=== PATIENT | female | born 1945 | race Caucasian/White ===

== ENCOUNTER → 2016-07-13 | Outpatient (CLI) | payer BC ==
[~2016-07-13] MED LIST: CLB/200 PO; CRAN500C2; DIPH25CA37 PO; FERR1TAB23 PO; GLUCTAB7 PO; HYDR12.55 PO; MULTTAB PO
--- NOTE | 2016-07-13 12:47 | MAMMOGRAPHY REPORT ---
BILATERAL DIGITAL SCREENING MAMMOGRAM TOMOSYNTHESIS WITH CAD: 07/13/2016 CLINICAL HISTORY: Routine screening. Patient has no complaints. TECHNIQUE: Breast tomosynthesis in addition to standard 2D mammography was performed. Current study was also evaluated with a Computer Aided Detection (CAD) system. COMPARISON: Comparison is made to exams dated: 07/09/2015 mammogram, 07/08/2014 mammogram, 07/04/2013 keon mogram, 01/14/2013 mammogram, 07/11/2012 mammogram, and 07/02/2012 mammogram - [facility] nt. BREAST COMPOSITION: There are scattered areas of fibroglandular density in both breasts. FINDINGS: No suspicious masses, calcifications, or areas of architectural distortion are noted in e ither breast. There has been no significant interval change compared to prior exams. Small nodular asymmetry in the right subareolar breast on the cc view is stable dating back to at least the 2009 e xam. Bilateral benign-appearing calcifications are not significantly changed. IMPRESSION: ACR BI-RADS CATEGORY 2: BENIGN There is no mammographic evidence of malignancy. A 1 year screening mammogram is recommended. The p atient will receive written notification of the results. Approximately 10% of breast cancers are not detected with mammography. A negative mammographic repor t should not delay biopsy if a clinically suggestive mass is present. Malika Mendoza M.D. ah/:07/13/2016 07:47:05 Deli Associate: Dori AUGUST)(Terry), [facility] letter sent: Normal 1/2 BI-RADS Code: ACR BI-RADS Category 2: Benign
== END | disposition home or self-care (01) ==
LOC: C.MAMM 07:10
PROVIDERS: ATTEND Family Medicine
DX: Z12.31 Encounter for screening mammogram for malignant neoplasm of breast (principal)

== ENCOUNTER → 2017-01-26 | Outpatient (CLI) | payer BC | END | disposition home or self-care (01) | LOC: C.MAMM 09:52 | PROVIDERS: ATTEND Family Medicine | DX: M85.851 Other specified disorders of bone density and structure, right thigh (principal); M85.852 Other specified disorders of bone density and structure, left thigh ==

== ENCOUNTER 2017-06-09 11:32 | Emergency (ER) | payer BC ==
[~2017-06-09] VITALS: Ht 165.1 cm; Wt 63.6 kg
[2017-06-09 11:41] VITALS: O2SAT 95
[2017-06-09 11:46] VITALS: TEMP 36.4; Ht 165.1 cm; Wt 63.6 kg
--- NOTE | 2017-06-09 12:25 | EMERGENCY ROOM VISIT NOTE ---
History Report prepared by Grecia: Karly Ibarra Under the Supervision of: Dr. Olman Gil M.D. First contact with patient: 11:50 Chief Complaint: SYNCOPE Stated Complaint: SYNCOPE Nursing Triage Summary: Patient was volunteering at [employer] when she began to feel light headed and dizzy. Patient sat down in chair and then had a witnessed syncopal episode. + LOC. Bystanders were able to lower patient to floor. Did not hit head. No injuries noted. Denies pain. Feels somewhat light headed at this time when sitting up. Had similar episode about 4 years ago. BS History of Present Illness The patient is a 71 year old female who presents to the Emergency Room with complaints of episode of syncope occurring at 10:30 am this morning. The patient states she was making meals for [employer] when she started to feel dizzy and lightheaded. She reports she then went to sit down and ate a banana and drank some water. She reports her symptoms worsened and then she had the episode of syncope. The patient states she did not hit her head and states 1 of her friends caught her and she did not hit the ground.. She denies any chest pain or shortness of breath. Presently, the patient notes some lightheadedness. She is not on a blood thinner. The patient has a history of arthritis. The patient she used to have hypertension but she recently lost weight which caused her blood pressure to normalize. Source of History: patient Onset: 1030 Position: other (generalized) Quality: other (syncope) Timing: other (episode) Associated Symptoms: + LOC, No headache, No chest pain, No SOB Review of Systems See HPI for pertinent positives and negatives. A total of ten systems were reviewed and were otherwise negative. Past Medical & Surgical Medical Problems: (1) Arthritis Family History No significant family history Social History Smoking Status: Never Smoker Marital Status: Housing Status: lives with significant other Occupation Status: retired Current/Historical Medications Scheduled Ascorbic Acid (Vitamin C), 500 MG PO DAILY Celecoxib (CeleBREX), 200 MG PO DAILY Celecoxib (Celebrex), 100 MG PO HS Cranberry (Vaccinium Macrocarp (Cranberry), 2 TABS DAILY Melatonin (Melatonin), 10 MG PO HS Multivitamins/Minerals (Mvi With Minerals), 1 TAB PO DAILY Allergies Coded Allergies: No Known Allergies (Unverified , 3/9/18) Physical Exam Vital Signs Date Time Temp Pulse Resp B/P (MAP) Pulse Ox O2 Delivery O2 Flow Rate FiO2 06/09/17 14:31 71 112/68 97 06/09/17 12:58 69 144/76 98 Room Air 06/09/17 12:08 73 06/09/17 11:46 36.4 74 127/70 97 Room Air 06/09/17 11:42 76 115/72 80 132/83 89 127/70 06/09/17 11:41 95 Room Air Physical Exam Physical Exam GENERAL: She is oriented to person, place, and time. She appears well- developed and well-nourished. She does not appear distressed. ____ HENT: Exam performed. Head: Normocephalic and atraumatic. Right Ear: External ear normal. No mastoid tenderness. Left Ear: External ear normal. No mastoid tenderness. Mouth/Throat: The oropharynx is clear and moist. No trismus in the jaw. No dental abscesses or uvula swelling. No oropharyngeal exudate or tonsillar abscesses. ____ EYES: Conjunctivae and EOM are normal. Pupils are equal, round, and reactive to light. Right eye exhibits no discharge. Left eye exhibits no discharge. No scleral icterus. ____ NECK: Normal range of motion. Neck supple. No JVD present. No spinous process tenderness present. No carotid bruit present. No rigidity. No tracheal deviation and normal range of motion present. No Brudzinski's sign and no Kernig 's sign noted. ____ CV: Normal rate, regular rhythm, normal heart sounds and intact distal pulses. There is no peripheral edema. Palpable radial pulses bue. ____ PULM/CHEST: Effort normal and breath sounds normal. No respiratory distress. No stridor. She has no wheezes. She has no rales. Chest Wall: She exhibits no tenderness. ____ ABD: The abdomen is soft. Bowel sounds are normal. She has no distension. No mass is present. There is no tenderness. There is no rebound, no guarding, no Morris's sign and no tenderness at McBurney's point. Rovsig negative MUSC/SKEL: Normal range of motion. There is no peripheral edema, tenderness or deformity. LYMPH: No cervical adenopathy. ____ NEURO: She is alert and oriented to person, place, and time. She has normal strength. No cranial nerve deficit or sensory deficit. Coordination and gait normal. GCS eye subscore is 4. GCS verbal subscore is 5. GCS motor subscore is 6. Cerebellar tests wnl. ____ SKIN: Skin is warm and dry. She is not diaphoretic. ____ PSYCH: She has a normal mood and affect. Her behavior is normal. Judgment and thought content normal. ____ Medical Decision & Procedures ER Provider Diagnostic Interpretation: Radiology results as stated below per my review and radiologist interpretation: ULTRASOUND OF THE ABDOMINAL AORTA FINDINGS: There is mild atherosclerotic calcification and irregularity noted throughout the abdominal aorta. The proximal abdominal aorta measures 2.1 x 2.2 cm (AP times transverse), the mid abdominal aorta measures 2.3 x 2.7 cm, and the distal abdominal aorta measures 1.9 x 2.1 cm. The right common iliac artery measures up to 1.1 cm and the left common iliac artery measures up to 1.2 cm. Normal flow and spectral Doppler waveforms are seen within the abdominal aorta. IMPRESSION: There is no sonographic evidence of abdominal aortic aneurysm. Electronically signed by: Sal Barnes M.D. Laboratory Results 06/09/17 12:25 Red Blood Count 4.28, Mean Corpuscular Volume 85.7, Mean Corpuscular Hemoglobin 29.0, Mean Corpuscular Hemoglobin Concent 33.8, Mean Platelet Volume 10.4, Neutrophils (%) (Auto) 75.5, Lymphocytes (%) (Auto) 16.8, Monocytes (%) (Auto) 4.7, Eosinophils (%) (Auto) 2.5, Basophils (%) (Auto) 0.3, Neutrophils # (Auto) 4.62, Lymphocytes # (Auto) 1.03, Monocytes # (Auto) 0.29, Eosinophils # (Auto) 0.15, Basophils # (Auto) 0.02 06/09/17 12:25 Test 06/09/17 12:25 White Blood Count 6.12 K/uL (4.8-10.8) Red Blood Count 4.28 M/uL (4.2-5.4) Hemoglobin 12.4 g/dL (12.0-16.0) Hematocrit 36.7 % (37-47) Mean Corpuscular Volume 85.7 fL (80-100) Mean Corpuscular Hemoglobin 29.0 pg (25-34) Mean Corpuscular Hemoglobin Concent 33.8 g/dl (32-36) Platelet Count 236 K/uL (130-400) Mean Platelet Volume 10.4 fL (7.4-10.4) Neutrophils (%) (Auto) 75.5 % Lymphocytes (%) (Auto) 16.8 % Monocytes (%) (Auto) 4.7 % Eosinophils (%) (Auto) 2.5 % Basophils (%) (Auto) 0.3 % Neutrophils # (Auto) 4.62 K/uL (1.4-6.5) Lymphocytes # (Auto) 1.03 K/uL (1.2-3.4) Monocytes # (Auto) 0.29 K/uL (0.11-0.59) Eosinophils # (Auto) 0.15 K/uL (0-0.5) Basophils # (Auto) 0.02 K/uL (0-0.2) RDW Standard Deviation 44.6 fL (36.4-46.3) RDW Coefficient of Variation 14.2 % (11.5-14.5) Immature Granulocyte % (Auto) 0.2 % Immature Granulocyte # (Auto) 0.01 K/uL (0.00-0.02) Anion Gap 6.0 mmol/L (3-11) Est Creatinine Clear Calc Drug Dose 61.8 ml/min Estimated GFR () 93.8 Estimated GFR (Non- 80.9 BUN/Creatinine Ratio 42.1 (10-20) Calcium Level 9.2 mg/dl (8.5-10.1) Troponin I < 0.015 ng/ml (0-0.045) Laboratory results reviewed by me ECG Per My Interpretation Indication: syncope Rate (beats per minute): 69 Rhythm: sinus rhythm Findings: other (MN, QRS, QTC within normal limits, no ST elevation or ST depression ) ED Course 1156: The patient was evaluated in room A12B. A complete history and physical exam was performed. 1430: Vitals stable. The patient feels fine and denies any chest pain or shortness of breath. Labs, EKG and imaging within normal limits. The patient is comfortable going home. DISCHARGE - Plan of care discussed with family and questions answered. The family was given both verbal and printed discharge instructions. The family verbalized understanding and ability to comply. The family is to seek outpatient follow up as noted in the discharge instructions. The family verbalized understanding and ability to comply. The family is discharged in stable condition. The family was instructed to return for worsening symptoms. Medical Decision Vitals stable. The patient feels fine and denies any chest pain or shortness of breath. Labs, EKG and imaging within normal limits. The patient is comfortable going home. DISCHARGE - Plan of care discussed with family and questions answered. The family was given both verbal and printed discharge instructions. The family verbalized understanding and ability to comply. The family is to seek outpatient follow up as noted in the discharge instructions. The family verbalized understanding and ability to comply. The family is discharged in stable condition. The family was instructed to return for worsening symptoms. Medication Reconcilliation Current Medication List: was personally reviewed by me Blood Pressure Screening Patient's blood pressure: Normal blood pressure Impression Primary Impression: Syncope Scribe Attestation The scribe's documentation has been prepared under my direction and personally reviewed by me in its entirety. I confirm that the note above accurately reflects all work, treatment, procedures, and medical decision making performed by me. The chart was completed utilizing [employer] Speech voice recognition software. Grammatical errors, random word insertions, pronoun errors, and incomplete sentences are an occasional consequence of this system due to software limitations, ambient noise, and hardware issues. Any formal questions or concerns about the content, text, or information contained within the body of this dictation should be directly addressed to the physician for clarification. Departure Information Dispostion Home / Self-Care Referrals Tariq Fontenot M.D. (PCP) Forms HOME CARE DOCUMENTATION FORM, IMPORTANT VISIT INFORMATION Patient Instructions ED Near [facility], [facility] Additional Instructions Return to the emergency department if you develop chest pain, shortness of breath, cough up blood, lose consciousness, have seizure, or fever greater than 100.4 Problem Qualifiers Primary Impression: Syncope Syncope type: unspecified Qualified Codes: R55 - Syncope and collapse
[2017-06-09 12:33] LABS: BASO % 0.3 %; BASO ABS # 0.02 K/uL (0-0.2); EOS % 2.5 %; EOS ABS # 0.15 K/uL (0-0.5); HEMATOCRIT 36.7 % (37-47); HEMOGLOBIN 12.4 g/dL (12.0-16.0); IG# 0.01 K/uL (0.00-0.02); LYMPH % 16.8 %; LYMPH ABS # 1.03 K/uL (1.2-3.4); MEAN CELL VOLUME 85.7 fL (80-100); MEAN CORPUSCULAR HGB CONC 33.8 g/dl (32-36); MEAN PLATELET VOLUME 10.4 fL (7.4-10.4); MONO % 4.7 %; MONO ABS # 0.29 K/uL (0.11-0.59); NEUT % 75.5 %; NEUT ABS # 4.62 K/uL (1.4-6.5); PLATELET COUNT 236 K/uL (130-400); RED CELL DISTRIBUTION WIDTH CV 14.2 % (11.5-14.5); RED CELL DISTRIBUTION WIDTH SD 44.6 fL (36.4-46.3); WHITE BLOOD COUNT 6.12 K/uL (4.8-10.8)
[2017-06-09 12:50] LABS: BLOOD UREA NITROGEN 31 mg/dl (7-18); CALCIUM 9.2 mg/dl (8.5-10.1); CARBON DIOXIDE 27 mmol/L (21-32); CREATININE 0.74 mg/dl (0.60-1.20); GLUCOSE 160 mg/dl (70-99); POTASSIUM 4.2 mmol/L (3.5-5.1); SODIUM 136 mmol/L (136-145)
--- NOTE | 2017-06-09 13:06 | DIAGNOSTIC IMAGING REPORT ---
ULTRASOUND OF THE ABDOMINAL AORTA CLINICAL HISTORY: Syncope. Aneurysm Screening. COMPARISON STUDY: No priors. TECHNIQUE: Multiple gaston scale, color Doppler, and spectral Doppler sonograms of the abdominal aorta and iliac arteries are performed. Images are reviewed in the transverse and longitudinal planes. FINDINGS: There is mild atherosclerotic calcification and irregularity noted throughout the abdominal aorta. The proximal abdominal aorta measures 2.1 x 2.2 cm (AP times transverse), the mid abdominal aorta measures 2.3 x 2.7 cm, and the distal abdominal aorta measures 1.9 x 2.1 cm. The right common iliac artery measures up to 1.1 cm and the left common iliac artery measures up to 1.2 cm. Normal flow and spectral Doppler waveforms are seen within the abdominal aorta. IMPRESSION: There is no sonographic evidence of abdominal aortic aneurysm. Electronically signed by: Sal Barnes M.D. 06/09/2017 1:04 PM Dictated Date/Time: 06/09/2017 12:58 PM
[2017-06-09] MEDS ORDERED: CELE100C PO (13:13)
[2017-06-09] MEDS ORDERED: ASCA500 PO (13:13)
[2017-06-09] MEDS ORDERED: MELA5TAB18 PO (13:13)
[2017-06-09 14:31] VITALS: BP 112/68; PULSE 71; O2SAT 97
== END 2017-06-09 14:31 | disposition home or self-care (01) ==
LOC: EDBD 11:32 → C.EDA 11:33
DX: R55 Syncope and collapse (principal); M19.90 Unspecified osteoarthritis, unspecified site; Z79.899 Other long term (current) drug therapy

== ENCOUNTER → 2017-06-14 | Outpatient (CLI) | payer BC ==
[~2017-06-14] MED LIST changes: +ASCA500 PO; +CELE100C PO; -DIPH25CA37 PO; -FERR1TAB23 PO; -GLUCTAB7 PO; -HYDR12.55 PO; +MELA5TAB18 PO
--- NOTE | 2017-06-14 09:42 | DIAGNOSTIC IMAGING REPORT ---
L HIP UNILATERAL 2 VIEWS CLINICAL HISTORY: PAIN IN L HIP pain COMPARISON: None. DISCUSSION: Severe degenerative change left hip. No complete loss of joint space. Reactive sclerosis of the articular services of the acetabulum as well as femoral head. Degenerative subchondral cyst formation of the femoral head and to a lesser extent acetabulum. Peripheral osteophytic change of the femoral head. No evidence for fracture or acetabular protrusion. Moderate degenerative changes left sacroiliac joint. There is no evidence for soft tissue swelling. IMPRESSION: Severe degenerative change left hip. The above report was generated using voice recognition software. It may contain grammatical, syntax or spelling errors. Electronically signed by: Sg Pedraza M.D. 06/14/2017 9:40 AM Dictated Date/Time: 06/14/2017 9:39 AM
== END | disposition home or self-care (01) ==
LOC: C.RAD1850 09:31
PROVIDERS: ATTEND Family Medicine
DX: M16.12 Unilateral primary osteoarthritis, left hip (principal); M25.552 Pain in left hip

== ENCOUNTER → 2017-07-10 | Outpatient (CLI) | payer BC | END | disposition home or self-care (01) | LOC: C.RDSM 17:46 | PROVIDERS: ATTEND Physical Medicine & Rehabilitation Sports Medicine | DX: M25.552 Pain in left hip (principal) ==

== ENCOUNTER → 2017-07-18 | Outpatient (CLI) | payer BC ==
--- NOTE | 2017-07-19 07:50 | MAMMOGRAPHY REPORT ---
BILATERAL DIGITAL SCREENING MAMMOGRAM TOMOSYNTHESIS WITH CAD: 07/18/2017 CLINICAL HISTORY: Routine screening. TECHNIQUE: Breast tomosynthesis in addition to standard 2D mammography was performed. Current study was also evaluated with a Computer Aided Detection (CAD) system. COMPARISON: Comparison is made to exams dated: 07/13/2016 mammogram, 07/09/2015 mammogram, 07/08/2014 keon mogram, 07/04/2013 mammogram, 07/02/2012 mammogram, and 06/27/2011 mammogram - [facility] BREAST COMPOSITION: There are scattered areas of fibroglandular density in both breasts. FINDINGS: There is slight increased density of the breasts and decreased subcutaneous fat, concordant with the clinical history of interval weight loss. There are a few benign rim calcifications. No s uspicious mass, architectural distortion or cluster of microcalcifications is seen. IMPRESSION: ACR BI-RADS CATEGORY 1: NEGATIVE There is no mammographic evidence of malignancy. A 1 year screening mammogram is recommended. The pa tient will receive written notification of the results. Approximately 10% of breast cancers are not detected with mammography. A negative mammographic report should not delay biopsy if a clinically suggestive mass is present. Kenisha Thrasher M.D. ay/:07/18/2017 07:55:17 Photoengraving Printer: Dori AUGUST)(Terry), [facility] letter sent: Normal 1/2 BI-RADS Code: ACR BI-RADS Category 1: Negative
== END | disposition home or self-care (01) ==
LOC: C.MAMM 07:08
PROVIDERS: ATTEND Family Medicine
DX: Z12.31 Encounter for screening mammogram for malignant neoplasm of breast (principal)

== ENCOUNTER → 2017-08-23 | Outpatient (CLI) | payer BC ==
--- NOTE | 2017-08-23 13:00 | DIAGNOSTIC IMAGING REPORT ---
RENAL ULTRASOUND CLINICAL HISTORY: Microscopic hematuria. Left flank pain. History of kidney stones. COMPARISON STUDY: None. TECHNIQUE: Sonography of the kidneys and the urinary bladder was performed. FINDINGS: The right kidney measures 10.8 x 4 x 5.1 cm and the left kidney measures 11.8 x 4.1 x 4.1 cm. There is no hydronephrosis. A 3 mm echogenic focus without associated shadowing within the right renal sinus is noted. This is probably artifactual. No shadowing calculi are identified. Renal echogenicity is normal as is cortical thickness. Note is made of a 4.1 cm solid-appearing mass arising from the midpole the left kidney. This was slightly echogenic when compared to the left renal parenchyma and contains color flow. Both ureteral jets were identified. No bladder abnormality was identified by sonography. IMPRESSION: 1. 4.1 cm solid left renal mass. Renal cell carcinoma is the diagnosis of exclusion. A follow-up renal protocol CT is recommended. Discussed with Dr. Fontenot at time of dictation. 2. No hydronephrosis. 3. Equivocal 3 mm right renal calculus which is likely artifactual. Electronically signed by: Chet Trejo M.D. 08/23/2017 12:59 PM Dictated Date/Time: 08/23/2017 12:47 PM
== END | disposition home or self-care (01) ==
LOC: C.ULTR 11:34
PROVIDERS: ATTEND Family Medicine
DX: N28.89 Other specified disorders of kidney and ureter (principal); N20.0 Calculus of kidney; R31.29 Other microscopic hematuria; Z84.1 Family history of disorders of kidney and ureter

== ENCOUNTER 2021-08-11 05:12 | Observation (INO) ==
--- NOTE | 2021-07-27 15:28 | PAT Medication Instructions ---
Medication Instructions Date of Service July 27, 2021 Home Medications Medication Instructions Recorded phenazopyridine 200 mg tablet 200 mg PO Q8H PRN #10 tab 07/09/21 (Pyridium) cranberry 500 mg capsule 500 mg PO QAM glucosamine HCl 1,500 mg tablet 1,500 mg PO QAM cholecalciferol (vitamin D3) 50 mcg (2,000 unit) capsule 50 mcg PO QAM rosuvastatin 5 mg tablet 5 mg PO QAM melatonin 5 mg tablet 5 mg PO HS bismuth subsalicylate 262 mg tablet (Pepto-Bismol) 1 tab PO HS Women's 50 Plus Advanced 1 tab PO QAM phenazopyridine 200 mg tablet (Pyridium) 200 mg PO Q8H PRN Lactobacillus acidophilus 10 billion cell capsule (Probiotic) 10,000 mmu cells PO QPM acetaminophen 500 mg capsule 1,000 mg PO BID chlorthalidone 25 mg tablet 25 mg PO QAM tamsulosin 0.4 mg capsule 0.4 mg PO DAILY STOP taking 2 weeks before surgery (or as soon as possible if surgery is within 2 weeks) cranberry 500 mg capsule 500 mg PO QAM glucosamine HCl 1,500 mg tablet 1,500 mg PO QAM DO NOT take the morning of surgery cholecalciferol (vitamin D3) 50 mcg (2,000 unit) capsule 50 mcg PO QAM Women's 50 Plus Advanced 1 tab PO QAM phenazopyridine 200 mg tablet (Pyridium) 200 mg PO Q8H PRN Lactobacillus acidophilus 10 billion cell capsule (Probiotic) 10,000 mmu cells PO QPM chlorthalidone 25 mg tablet 25 mg PO QAM Take morning of surgery With a small sip of water, OTHERWISE NOTHING TO EAT OR DRINK AFTER MIDNIGHT: rosuvastatin 5 mg tablet 5 mg PO QAM acetaminophen 500 mg capsule 1,000 mg PO BID (okay to take up to 4 hours prior to surgery if needed) tamsulosin 0.4 mg capsule 0.4 mg PO DAILY Take evening before surgery melatonin 5 mg tablet 5 mg PO HS bismuth subsalicylate 262 mg tablet (Pepto-Bismol) 1 tab PO HS phenazopyridine 200 mg tablet (Pyridium) 200 mg PO Q8H PRN (if needed) Lactobacillus acidophilus 10 billion cell capsule (Probiotic) 10,000 mmu cells PO QPM acetaminophen 500 mg capsule 1,000 mg PO BID Other Notes If you have any questions please call us at [phone] or [phone] or [phone] or [phone]
--- NOTE | 2021-07-30 12:37 | Anesthesiology Consultation ---
Date of Service July 30, 2021 Assessment & Plan (1) Encounter for pre-operative examination: - Patient acceptable risk for surgery pending surgeon-ordered PCP preop evaluation (scheduled 07/30; Dr. Tariq Fontenot). - COVID screening: Per assessment on 07/30: No known COVID-19 positive contacts or current COVID-19 related symptoms. Travel screen negative. Patient vaccinated. Surgeon arranging preop COVID testing. Awaiting results. - Hx glidescope intubation: Left Nephrectomy (10/18/17): Smooth induction. No view with D.L, grade view 3/4. Atraumatic intubation with Glidescope 3. - S/P ESWL (07/09/21): LMA#4, atraumatic at [facility] - Check BSG AM DOS (glucose elevated at 159 on preop labs. No known hx of diabetes. Will recheck AM DOS). Chart Review Chart Review: Patient seen in Pre Admission Testing Teaching & Discussion Pre-Anesthesia Teaching/Discussion Notes: Instructed NPO after midnight before surgery,except medications with 15 cc of water. Medication instructions provided according to the PAT guidelines. History Surgery Operation Date: 08/11/21 11:00 Proposed Procedures p Right Total Knee Arthroplasty(Right) - Joe Salas MD Height/Weight Height: 5 ft 6 in Weight: 64.5 kg Allergies Allergy/AdvReac Type Severity Reaction Status Date / Time No Known Drug Allergies Allergy Unknown Unknown Verified 07/27/21 14:21 Medications Home Medications Medication Instructions Recorded Confirmed Last Taken cranberry 500 mg capsule 500 mg PO QAM 02/14/18 07/27/21 02/21/18 06:00 glucosamine HCl 1,500 mg tablet 1,500 mg PO QAM 12/14/18 07/27/21 Unknown cholecalciferol (vitamin D3) 50 50 mcg PO QAM 05/26/20 07/27/21 Unknown mcg (2,000 unit) capsule rosuvastatin 5 mg tablet 5 mg PO QAM 05/26/20 07/27/21 Unknown melatonin 5 mg tablet 5 mg PO HS tab 06/25/21 07/27/21 Unknown bismuth subsalicylate 262 mg 1 tab PO HS 07/06/21 07/27/21 Unknown tablet (Pepto-Bismol) obpauwdlyvbi-ulkfagti-aoxmcbx-folic 1 tab PO QAM 07/06/21 07/27/21 Unknown acid 400 mcg-vit K1 20 mcg tablet (Women's 50 Plus Advanced) phenazopyridine 200 mg tablet 200 mg PO Q8H PRN #10 tab 07/09/21 07/27/21 Unknown (Pyridium) Lactobacillus acidophilus 10 10,000 mmu cells PO QPM 07/27/21 07/27/21 Unknown billion cell capsule (Probiotic) acetaminophen 500 mg capsule 1,000 mg PO BID 07/27/21 07/27/21 Unknown chlorthalidone 25 mg tablet 25 mg PO QAM 07/27/21 07/27/21 Unknown tamsulosin 0.4 mg capsule 0.4 mg PO DAILY 07/27/21 07/27/21 Unknown Past Medical History Medical History Anemia Chronic kidney disease, stage II (mild) follows with Dr. Veloz Degenerative disc disease History of kidney stones Hypertension Under surveillance Left renal mass s/p left nephrectomy 2017 Osteoarthritis Renal oncocytoma Exercise / Class Metabolic Activity III < 4 Walking/Shop/Light housework (one FS (no CP, + occasional SOB- typically if carrying things)) Past Family History Family History Father Cardiac disorder Mother Cardiac disorder Hypertension Brother Prostate cancer Hypertension Grandfather Kidney stone Daughter Kidney stone Aunt Pancreatic cancer Other No family history of adverse response to anesthesia Past Surgical History Surgical History H/O section x2, had spinal for 2nd one H/O dilation and curettage History of colonoscopy History of lithotripsy x2 ESWL (07/09/21): LMA#4, atraumatic at [facility] History of nephrectomy left, 2/2 benign mass Nephrectomy (10/18/17): Smooth induction. No view with D.L, grade view 3/4. Atraumatic intubation with Glidescope 3. History of total hip arthroplasty left Nausea and vomiting after administration of anesthetic agent Past Anesthesia History Difficult Airway ( Nephrectomy (10/18/17): Smooth induction. No view with D.L, grade view 3/4. Atraumatic intubation with Glidescope 3.) and No Family Hx of Anesthesia Complications History of PONV History of PONV and Hx of Motion Sickness Social History Smoking Status: Never smoker Do You Dip or Chew Tobacco: No Hx Alcohol Use: No Hx Substance Use: No substance use type: does not use Review of Systems Patient denies chest pain, shortness of breath, dyspnea on exertion, fever, chills, cough, wheezing, palpitations. Physical Exam Vital Signs VITALS BP 147/81 P 77 TEMP 98.0 SP02 99%RA RESP 16 PHYSICAL Decreased cervical extension range of motion. Full TMJ range of motion. TMD 2.5 finger breaths (small chin) Mallampati Score 3 Dentition: intact, + caps Lungs: clear throughout to auscultation Cardiac: regular rate and rhythm, no murmurs noted Spine: normal Carotid arteries: negative bruit Extremities: no edema Lab Results Anesthesia Preop Results Results Anesthesia Widget: WBC 6.09 K/uL (4.8-10.8) 07/30/21 Hgb 12.1 g/dL (12.0-16.0) 07/30/21 Hct 37.4 % (37-47) 07/30/21 Plt 277 K/uL (130-400) 07/30/21 Na 131 mmol/L (136-145) L 07/30/21 K 3.6 mmol/L (3.5-5.1) 07/30/21 Cl 93 mmol/L (98-107) L 07/30/21 CO2 31 mmol/L (21-32) 07/30/21 BUN 28 mg/dl (6-23) H 07/30/21 Creat 0.85 mg/dl (0.6-1.2) 07/30/21 Glucose Level 159 mg/dl (70-99(Fasting)) H 07/30/21 PT 11.3 Seconds (9.0-12.0) 07/30/21 PTT 28.2 Seconds (21.0-31.0) 07/30/21 INR 1.1 (0.9-1.1) 07/30/21 Urine Color Yellow 07/30/21 Urine Appearance Clear (Clear) 07/30/21 Urine pH 5.5 (4.5-7.5) 07/30/21 Urine Specific Bode 1.010 (1.000-1.030) 07/30/21 Urine Protein Negative (Negative) 07/30/21 Urine Glucose (UA) Negative (Negative) 07/30/21 Urine Ketones Negative (Negative) 07/30/21 Urine Blood 2+ (Negative) H 07/30/21 Urine Nitrite Negative (Negative) 07/30/21 Urine Bilirubin Negative (Negative) 07/30/21 Urine Urobilinogen Negative (Negative) 07/30/21 Urine Leukocyte Esterase Negative (Negative) 07/30/21 Urine WBC (Auto) 0 /hpf (0-5) 07/30/21 Urine RBC (Auto) 5-10 /hpf (0-4) H 07/30/21 Urine Hyaline Casts (Auto) 0 /lpf (0-5) 07/30/21 Urine Epithelial Cells (Auto) 5-10 /lpf (0-5) H 07/30/21 Urine Bacteria (Auto) Negative (Negative) 07/30/21 Blood Type A Negative 07/30/21 Antibody Screen NEGATIVE 07/30/21 Testing Laboratory Results Intermittent mild hyponatremia with sodium in the low 130s per chart review. Will forward preop testing to PCP for continuity of care. Electrocardiogram Date: 06/25/21 NSR at 7bpm. Possible LAE. Chest X-Ray Date: 06/25/21 No acute cardiopulmonary disease. There is no significant interval change.
--- NOTE | 2021-08-09 21:26 | History & Physical Report ---
Date of Service August 09, 2021 Assessment & Plan (1) Right knee DJD: Plan: Postoperative prescriptions for Percocet and Coumadin will be provided at discharge from the hospital. Anticipate discharge to home with home health services. Arrangements have already been made with [facility]. The patient is aware of the COVID-19 risks associated with surgery. She is currently asymptomatic of any COVID-19 symptoms. She states she is fully vaccinated. COVID nasal swab will be obtained 2 days prior to surgery. PDMP was checked and there are no concerning findings. The patient will meet with PAT today for her preoperative lab work, EKG, and chest x-ray. She will also see her PCP today for clearance. The patient already has a walker and cane. Postoperative followup appointment has been made for 08/26 at 2:15 p.m. Call with any other concerns. History of Present Illness Chief Complaint: Right knee pain Primary Care Provider: Tariq Fontenot MD This 76-year-old female presents with her for her preoperative history and physical. She is scheduled to undergo a right knee total knee arthroplasty on 08/11/2021. The patient has had right knee pain for several years. It has become worse with time. She has tried activity modification, oral Tylenol, cortisone injections, and home therapy without lasting improvement. She elects to proceed with surgical intervention in the hopes of improving her function and pain. She does get occasional night pain. No swelling that she is aware of. She has lost motion. Pain is worse with weightbearing. It is affecting her ADLs. Preoperative imaging has been obtained. Allergies Allergy/AdvReac Type Severity Reaction Status Date / Time No Known Drug Allergies Allergy Unknown Unknown Verified 07/27/21 14:21 atorvastatin AdvReac Unknown Verified 08/09/21 21:21 Home Medications Medication Instructions Recorded Confirmed Type cranberry 500 mg capsule 500 mg PO QAM 02/14/18 07/27/21 History glucosamine HCl 1,500 mg tablet 1,500 mg PO QAM 12/14/18 07/27/21 History cholecalciferol (vitamin D3) 50 50 mcg PO QAM 05/26/20 07/27/21 History mcg (2,000 unit) capsule rosuvastatin 5 mg tablet 5 mg PO QAM 05/26/20 07/27/21 History melatonin 5 mg tablet 5 mg PO HS tab 06/25/21 07/27/21 History bismuth subsalicylate 262 mg 1 tab PO HS 07/06/21 07/27/21 History tablet (Pepto-Bismol) gprwrghgmzkh-cbrvxkvh-yalzmhe-folic 1 tab PO QAM 07/06/21 07/27/21 History acid 400 mcg-vit K1 20 mcg tablet (Women's 50 Plus Advanced) phenazopyridine 200 mg tablet 200 mg PO Q8H PRN #10 tab 07/09/21 07/27/21 Rx (Pyridium) Lactobacillus acidophilus 10 10,000 mmu cells PO QPM 07/27/21 07/27/21 History billion cell capsule (Probiotic) acetaminophen 500 mg capsule 1,000 mg PO BID 07/27/21 07/27/21 History chlorthalidone 25 mg tablet 25 mg PO QAM 07/27/21 07/27/21 History tamsulosin 0.4 mg capsule 0.4 mg PO DAILY 07/27/21 07/27/21 History Past Med/Surg History Medical History Anemia Chronic kidney disease, stage II (mild) follows with Dr. Veloz Degenerative disc disease History of kidney stones Hypertension Under surveillance Left renal mass s/p left nephrectomy 2018 Osteoarthritis Renal oncocytoma Surgical History H/O section x2, had spinal for 2nd one H/O dilation and curettage History of colonoscopy History of lithotripsy x2 ESWL (07/09/21): LMA#4, atraumatic at [facility] [place] History of nephrectomy left, 2/2 benign mass Nephrectomy (10/18/17): Smooth induction. No view with D.L, grade view 3/4. Atraumatic intubation with Glidescope 3. History of total hip arthroplasty left Nausea and vomiting after administration of anesthetic agent Family History Father Cardiac disorder Mother Cardiac disorder Hypertension Brother Prostate cancer Hypertension Grandfather Kidney stone Daughter Kidney stone Aunt Pancreatic cancer Other No family history of adverse response to anesthesia Social History Smoking Status: Never smoker Second Hand Exposure: Yes (years ago); Hx Alcohol Use: No Hx Substance Use: No Preferred Language: Sami Communication Ability: Effective Visual Impairment: No Limitations Chemical Maker Required: No Beliefs That Will Affect Care: None marital status: Current Living Situation: Spouse Feels Safe at Home: Yes Assistive Devices: Glasses and Walker Review of Systems Review of Systems: All systems reviewed & are unremarkable except as noted in HPI & below Physical Exam Physical Exam: Vitals: Height 166.1 cm, weight 64.6 kilograms, BMI 23.4, temperature 36.4, BP 130/72, pulse 75, respirations 18, O2 sat 99% on room air. General: Well-developed, well-nourished, elderly white female in no acute distress. Sitting in a chair. Alert and oriented. Skin: Warm and dry with good turgor. No rashes. No ecchymosis or erythema. No intraarticular effusion. HEENT: Normocephalic, atraumatic. Eyes: PERRLA, EOMI. Nares and oropharynx exams deferred due to COVID precautions. Heart: RRR. No MGR. Lungs: Clear to auscultation bilaterally. No crackles, rhonchi or wheezing. Good air movement. Abdomen: Bowel sounds present x4. Soft, nontender. No organomegaly. Musculoskeletal: Right knee evaluation reveals an obvious flexion contracture. She lacks about 10-15 degrees of extension on the right. Flexion to 110 degrees. Strength is 5/5 with fair quad tone. She is able to perform straight- leg raise. Varus alignment. Stable collateral ligaments. No defect in the patellar tendon or quadriceps tendon. Intact motor function of the ankle. The patient is ambulatory with an antalgic gait due to her flexion contracture. Neurologic: Gross sensation is intact across the right leg by soft touch. Peripheral pulses are 2+. Results & Data Results & Data ([facility]) Diagnostic Findings Radiographic imaging previously obtained shows tricompartmental end-stage DJD. Periarticular osteophytes, subchondral sclerosis, and joint space narrowing are all present. Code Status & VTE Plan VTE Prophylaxis Plan VTE Prophylaxis will be ordered: Yes
--- NOTE | 2021-08-11 05:54 | History & Physical Bridge Note ---
Date of Service August 11, 2021 History & Physical Bridge Note I have examined the patient, reviewed the History & Physical and in the interval since the performance of the History & Physical I have noted the following changes of clinical significance: case cancelled secondary to medical acute change.
[2021-08-11] MEDS ORDERED: LR 500ML BOLUS, THEN 15ML/HR IV SCH (06:00)
[2021-08-11] MEDS ORDERED: LR 60ML/HR IV SCH (06:00)
[2021-08-11] MEDS ORDERED: ceFAZolin 2000MG 2,000 MG/15 ML SYR IV SCH (06:00)
[2021-08-11] MEDS ORDERED: TRANEXAMIC ACID 1,000 MG **IV Pre-op IV SCH (06:00)
[2021-08-11] MEDS ORDERED: ROPIVACAINE 0.5% HCL/PF 150 MG, BUPIVACAINE 0.75% MPF 20 ML, EPINEPHrine 0.15 MG, dexAM... INFIL SCH (06:00)
[2021-08-11] MEDS ORDERED: BUPIVACAINE 0.5 % 5 MG/1 ML PF 10ML VIAL ONE (06:36)
[2021-08-11] MEDS ORDERED: ROPIVACAINE 0.5% 5 MG/ML 30 ML VIAL ONE (06:36)
--- NOTE | 2021-08-11 07:24 | History & Physical Bridge Note ---
Date of Service August 11, 2021 History & Physical Bridge Note I have examined the patient, reviewed the History & Physical and in the interval since the performance of the History & Physical I have noted the following changes of clinical significance:patient cleared by ER doc and anesthesia.will proceed with surgery. no changes noted
[2021-08-11] MEDS ORDERED: fentaNYL citrate 100 MCG/2 ML VIAL ONE (08:02)
[2021-08-11] MEDS ORDERED: LIDOCAINE 2% 2 ML VIAL/AMP(20MG/ML) INFIL ONE (08:02)
[2021-08-11] MEDS ORDERED: PROPOFOL IV EMULSION 10 MG/ML 20 ML VIAL IV ONE (08:02)
[2021-08-11] MEDS ORDERED: ONDANSETRON INJ 2 MG/ML 2 ML VIAL ONE (08:02)
[2021-08-11] MEDS ORDERED: SCOPOLAMINE 1 MG TDSY TD ONE ×2 (08:15→08:30)
[2021-08-11] MEDS ORDERED: fentaNYL citrate 100 MCG/2 ML VIAL IV PRN (08:31)
[2021-08-11] MEDS ORDERED: ONDANSETRON INJ 2 MG/ML 2 ML VIAL IV PRN ×2 (08:31→12:49)
[2021-08-11] MEDS ORDERED: ePHEDrine sulfate 50 MG/ML AMP IV PRN (08:31)
[2021-08-11] MEDS ORDERED: ATROPINE SULFATE 0.1 MG/ML 10ML SYR IV PRN (08:31)
[2021-08-11] MEDS ORDERED: ORTHO JOINT ANESTHETIC ONE (09:22)
[2021-08-11] MEDS ORDERED: FAMOTIDINE/PF 20 MG/2 ML VIAL IV ONE (09:35)
[2021-08-11] MEDS ORDERED: HYDROmorphone INJ 2 MG/ML SYR/VIAL ONE (10:01)
--- NOTE | 2021-08-11 11:11 | Post Operative Brief Note ---
Immediate Post Op Note v1 Date of Surgery August 11, 2021 Pre & Post Diagnosis Operation Date: 08/11/21 07:00 Pre-Op Diagnosis: Right Knee Degenerative Joint Disease Post-Op Diagnosis: Right Knee Degenerative Joint Disease I identified the patient and participated in the time-out.: Yes Procedure Operation Date: 08/11/21 07:00 Actual Procedures p Right Total Knee Arthroplasty(Right) - Joe Salas MD Surgeon Joe Salas MD Marsh Buggy Operator Cuco Larson Estimated Blood Loss 25 Findings Consistent with Post-Op Diagnosis severe DJD
--- NOTE | 2021-08-11 11:18 | Operative Report ---
Post Operative Report Pre & Post Diagnosis Operation Date: 08/11/21 07:00 Pre-Op Diagnosis: Right Knee Degenerative Joint Disease Post-Op Diagnosis: Right Knee Degenerative Joint Disease I identified the patient and participated in the time-out.: Yes Procedure Operation Date: 08/11/21 07:00 Actual Procedures p Right Total Knee Arthroplasty(Right) - Joe Salas MD Surgeon CANDY Salas MD Marketing Teacher Cuco Larson Estimated Blood Loss 25 Findings Consistent with Post-Op Diagnosis see operative report Specimens see operative report Drains none Complications Inverted T waves during the case per anesthesia. No orthopedic complications. Disposition Accompanied Patient To Recovery: Yes Indications This 76 year old female presented to the office with complaints of persisting right knee pain and loss of motion. She had tried conservative care measures without improvement. She elected to proceed with surgical intervention after being educated about potential risks and outcomes. Preoperative imaging was obtained. Description of Procedure Patient was taken to the operating room where she was given general anesthesia. She was prepped and draped in the usual sterile fashion. Please see Dr. Salas's operative report for specifics of the procedure. I was present for the entire case from initial patient positioning through final wound closure. Assistance was provided in tissue retraction, hemostasis, trial implant placement, final implant placement, and final wound closure. Patient was taken to the recovery room in satisfactory condition. I attest to the content of the Intraoperative Record and any orders documented therein. Any exceptions are noted below.
--- NOTE | 2021-08-11 11:43 | Operative Report (OR) ---
DATE OF PROCEDURE: 08/11/2021. SURGEON: Joe Salas MD. PERSONNEL DIRECTOR: Douglas Norwood PA-C. SECOND PERSONNEL DIRECTOR: Medical student, Neo. PREOPERATIVE DIAGNOSIS: Osteoarthritis, right knee, with varus flexion deformity. POSTOPERATIVE DIAGNOSIS: Osteoarthritis, right knee, with varus flexion deformity. OPERATION PERFORMED: Cemented right total knee replacement. SUMMARY OF IMPLANTS: Size 3 right posterior cruciate substituting femur, size 3 mobile bearing tray, size 41 patella, size 3 x 10 mm insert, posterior cruciate substituting J and J rotating platform system. Two bags of Palacos G cement. ESTIMATED BLOOD LOSS: 25 mL. CRYSTALLOID: Per anesthesia. PATHOLOGY: Pending on bone. DVT prophylaxis per protocol. PERIOPERATIVE SITUATION: Medically cleared female who actually had a syncopal episode this morning and was sent to the ER, was cleared by Dr. Curry and Dr. Mills, anesthesia. Based on the good clinical appearance and with the patient/spouse desiring to proceed, everyone agreed to move ahead and proceeded with her surgery. She states this happens all the time, particularly when she is n.p.o. and is dehydrated. She denied any other issues. DESCRIPTION OF PROCEDURE: The patient was appropriately identified, site verified, consent verified. Antibiotics were confirmed as being given. The right lower extremity was prepped and draped in usual routine fashion. Tourniquet was inflated to 300 mmHg after exsanguination of the limb with a rubber Esmarch bandage for a total of 48 minutes. Midline exposure utilized. Parapatellar arthrotomy performed. Synovectomy completed, osteophytes resected. Distal femur entered. Cruciates resected. Tibia was subluxated. Menisci resected. Distal femur resected 14 mm, proximal tibia 4 mm, the extension gap was excellent. The tibia was sized to a 3, the femur was sized anywhere between a 5 and a 3, so it was measured 4, cut 3. There was just some minor anterior resection that was a little bit deeper than normal but no major notching. Flexion gap was then checked, it was excellent. The box cut was then made and a size 3 fit well. The tibia was broached and reamed to a size 3 and, with the 10 spacer, everything was stable. The knee was straight and there was no mid range instability. The patella was resected leaving 14 mm and a 41 button drilled into position, it was in excellent position and tracked well. The Orthomix was then injected all about the knee. All trial implants were removed, the wound irrigated with Betadine Pulsavac, and then the permanent cemented into position - the tibia, femur, and patella in that order. After 12 minutes, the tourniquet was deflated. No major bleeding encountered. After 14 minutes, the knee was flexed. The trial spacer removed. No cement removal was required. The wound was irrigated one more time with Betadine Pulsavac, the permanent liner seated, the knee reduced and closed with #2 Vicryl, 2-0 Vicryl and stainless steel clips. Appropriate dressing applied. The patient was transferred to recovery room in satisfactory condition, having tolerated the procedure well. The patient will be evaluated in recovery room with a 12-lead EKG to assess some T-wave changes. Otherwise, everything looks good. Job ID: [id number] [facility]
--- NOTE | 2021-08-11 11:52 | Anesthesiology Progress Note ---
Date of Service August 11, 2021 Anesthesia Post Procedure Vital Signs Vital Signs: Temp Pulse Resp BP Pulse Ox 08/11/21 11:45 98 H 22 148/74 H 100 08/11/21 11:35 103 H 14 146/70 H 100 08/11/21 11:25 103 H 15 141/66 H 100 08/11/21 11:19 98.2 F 102 H 16 136/68 100 08/11/21 07:56 97.7 F 86 18 155/86 H 97 Pain Intensity Right Knee: Pain Intensity: 8 Transfer of Care Handoff Completed per policy Notes Mental Status: alert / awake / arousable and participated in evaluation Patient Amnestic to Procedure: Yes Nausea / Vomiting: adequately controlled Pain: adequately controlled Airway Patency, RR, SpO2: stable & adequate BP & HR: stable & adequate Hydration State: stable & adequate Anesthetic Complications: no major complications apparent and Pt Satisfied with anesthetic care Notes: The patient was noted to have T wave changes on the monitor intra-operatively. The patient's vital signs remained stable. An EKG was ordered post-operatively, there were some nonspecific T wave changes. I spoke to the hospitalist Dr. Damon regarding the patient. We agreed to have the patient be sent to telemetry for further monitoring. The patient remained stable without complaints in PACU. She denied any CP or SOB. The patient was otherwise stable to be transferred to the floor. Dr. Salas was made aware of the situation.
--- NOTE | 2021-08-11 11:54 | Progress Notes ---
DATE OF SERVICE: 08/11/2021. SUBJECTIVE: Postop check status post right total knee replacement. The patient is resting comfortably in the PACU bed. She denies any chest pain, shortness of breath, fever, chills, nausea, vomiting or headache. OBJECTIVE: VITAL SIGNS: Stable. She is afebrile. Neurovascular check of femoral sciatic nerve is normal. Postoperative x-rays look excellent. At this point in time, EKG was checked. There was one lead where there may be some potential changes, so she will get a hospital consult. Dr Mills agrees. This is again based on the fact that she had a syncopal episode this morning; she was appropriately cleared for surgery by both anesthesia and by ER evaluation. At this point in time, we will be cautious with this and make sure that we do not have anything subtle that is being missed. The patient feels very comfortable and denies any problems. informed. Job ID: [id number] [facility]
[2021-08-11] MEDS ORDERED: METOPROLOL TARTRATE 1 MG/ML VIAL IV ONE (11:56)
--- NOTE | 2021-08-11 12:00 | Discharge Summary (DS) ---
DATE OF ADMISSION: 08/11/2021 DATE OF DISCHARGE: 08/12/2021 CHIEF COMPLAINT: Right knee pain. HISTORY OF PRESENT ILLNESS: Underwent elective right total knee replacement. Hospital course was slightly disrupted by having a syncopal episode, likely based on orthostatic pressure change from being dehydrated. She has a history of having such. She was seen in the ER and was cleared by anesthesia and by ER attending.. At this point in time, she underwent elective right total knee replacement.Post op doing well but will be monitored for asymptomatic EKG subtle changes.Hospitalist consult placed.At present she is without any cardiac symptoms.Dicharge today if hospitalist service agrees. Carotid US without issues. transient sleep awakening confusion but orients quickly. ALLERGIES: UNKNOWN TO ATORVASTATIN. HOME MEDICATIONS: Include supplements, rosuvastatin, Pepto-Bismol, Pyridium, acetaminophen p.r.n., chlorthalidone, tamsulosin. PAST MEDICAL HISTORY: Remarkable for chronic kidney disease stage II, degenerative disk disease, history of kidney stones, history of left renal mass, status post nephrectomy in 2018, osteoarthritis, renal oncocytoma, history of fainting. PAST SURGICAL HISTORY: Remarkable for section, D and C, colonoscopies, lithotripsies, ESWL, nephrectomy, total hip replacement on the left. FAMILY HISTORY: Remarkable for cardiac disease in mother and father; hypertension and prostate cancer in her brother; kidney stones, pancreatic cancer in an aunt. SOCIAL HISTORY: Reveals she does not smoke. Social alcohol only. , lives with his spouse. REVIEW OF SYSTEMS: Noncontributory. ASSESSMENT: Status post right knee replacement. Continue care pathway. Potential discharge when cleared by hospitalist.Coumadin dose per normogram keep INR 1.8 range. Post op xrays look good.Full WBAT R leg and start ROM 0-90 as tolerated. Job ID: [id number] [facility]
--- NOTE | 2021-08-11 12:01 | Hospitalist Consultation ---
Date of Consultation August 11, 2021 Assessment & Plan (1) Syncope: Melissa is a 76-year-old female with a history of left nephrectomy, hypertension, CKD 2, and osteoarthritis who presented to the [facility] for right total knee replacement. Medical service has been consulted as patient did experience an episode of presyncope thought to be vasovagal in the setting of hypovolemia while n.p.o. who improved with NSS in the ER and subsequently underwent total knee replacement but who had concern for potential T wave changes in V6 and lead to towards the end of the procedure. Syncope, concern for postoperative T wave changes Patient with an episode of syncope in the setting of n.p.o. for right knee total arthroplasty. Was seen in ER for evaluation, etiology thought to be vasovagal with dehydration. Did clinically improve with 1 L NSS and currently underwent right total knee arthroplasty Postop EKG: Flattened equivocal T wave in V6, otherwise similar to prior NSR without ST segment changes. Sinus bradycardia rate 59, QTc 461 Patient does report history of near syncope with decreased fluid intake and orthostasis while n.p.o. - Clinically asymptomatic with no chest pain/SoB/presyncope at bedside. Normotensive, HR 80-90s. - HEART score 3-4 points Monitor overnight on medical telemetry High-sensitivity troponin with 2-hour and 6-hour recheck ordered TTE 08/03/2021: Normal LV SF, no regional wall motion abnormalities, EF approximately 65%, grade 1 diastolic dysfunction of the left ventricle, mild mitral regurg - Carotid dopplers ordered, pending Osteoarthritis of the right knee, status/post cemented right total knee replacement Estimated blood loss 25 cc, no major bleeding, third procedure well although was evaluated for concern for T wave changes as noted above. Otherwise no complications. 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 without subsequent complication Baseline creatinine approximately 0.91, GFR approximately 90, structurally normal right ultrasound on 08/19 follow-up Avoid NSAIDs Vitamin D deficiency Continue vitamin D supplementation, calcium supplementation History of hematuria Related to kidney stones, no mass noted on above evaluation No acute intervention, continue outpatient monitoring GERD Famotidine 20 mg twice daily as needed for GERD, PPI deferred for BMD ED prophylaxis: Per primary surgical team Diet: Per primary surgical team Disposition: Monitor and med/telemetry for syncope overnight CODE STATUS: Full code (2) Acute dehydration: - s/p NSS in ER 1L, minimal blood loss in ER - Diet per surgery, may add second 500cc-1L NSS bolus if sinus tach/hypotensive and above eval remains normal (3) Hypertension: (4) Arthritis: (5) Vitamin D deficiency: (6) Chronic kidney disease, stage II (mild): (7) History of nephrectomy: (8) Right knee DJD: History of Present Illness Reason for Consultation: Syncope, V6/lead to? T wave inversion Attending Physician: Joe Salas MD History of Present Illness Melissa is a 76-year-old female with a history of left nephrectomy, hypertension, CKD 2, and osteoarthritis who presented to the [facility] for right total knee replacement. Medical service has been consulted as patient did experience an episode of presyncope thought to be vasovagal in the setting of hypovolemia while n.p.o. who improved with NSS in the ER and subsequently underwent total knee replacement but who had concern for potential T wave changes in V6 and lead to towards the end of the procedure. Currently seen at the bedside in PACU. She reports she feels well, and her normal baseline level of health, is asymptomatic at time of assessment. She denies any current or preceding chest pain. Denies shortness of breath. She reports that when she was hypotensive this morning she did have nausea but that resolved following fluid administration. Currently denies lightheadedness, dizziness, pain including at her surgical site, bleeding, vision change, chest pressure, shoulder blade pain, abdominal pain. She reports she does have a history of syncope/presyncope in the past when dehydrated and she notes she gets dehydrated very easily. Did have a Holter outpatient monitor 10 years ago which was normal per patient. She reports she was recently diagnosed with a trivial murmur which was due to a valve "leaky normal from age someone told "and had a TTE recently which showed normal pumping function and was otherwise nonconcerning. Denies weakness, sensory change, neuro deficits. Denies history of TN/CAD, denies history of tobacco abuse/alcohol/DM/early family history of TN. Does have a family history of hypertension, hyperlipidemia, sarcoidosis, prostate cancer, hypertension, rainouts. PCP: Dr. Warner Fontenot. Medical History: Reviewed Medications: Atorvastatin, pt unsure rxn. Denies rash/liver injury Surgical History: Reviewed Allergies: Reviewed Social History: no history of tobacco use, no alcohol use, no recreational drug use. Code Status: Full code Allergies Allergy/AdvReac Type Severity Reaction Status Date / Time No Known Drug Allergies Allergy Unknown Unknown Verified 07/27/21 14:21 atorvastatin AdvReac Unknown Verified 08/11/21 07:17 Home Medications Medication Instructions Recorded Confirmed Type cranberry 500 mg capsule 500 mg PO QAM 02/14/18 08/11/21 History glucosamine HCl 1,500 mg tablet 1,500 mg PO QAM 12/14/18 08/11/21 History cholecalciferol (vitamin D3) 50 50 mcg PO QAM 05/26/20 08/11/21 History mcg (2,000 unit) capsule rosuvastatin 5 mg tablet 5 mg PO QAM 05/26/20 08/11/21 History melatonin 5 mg tablet 5 mg PO HS tab 06/25/21 08/11/21 History bismuth subsalicylate 262 mg 1 tab PO HS 07/06/21 08/11/21 History tablet (Pepto-Bismol) bthhqariarpq-rxkfgtlc-rtyemlg-folic 1 tab PO QAM 07/06/21 08/11/21 History acid 400 mcg-vit K1 20 mcg tablet (Women's 50 Plus Advanced) phenazopyridine 200 mg tablet 200 mg PO Q8H PRN #10 tab 07/09/21 08/11/21 Rx (Pyridium) acetaminophen 500 mg capsule 1,000 mg PO BID 07/27/21 08/11/21 History chlorthalidone 25 mg tablet 25 mg PO QAM 07/27/21 08/11/21 History Patient History Medical History Anemia Chronic kidney disease, stage II (mild) follows with Dr. Veloz Degenerative disc disease History of kidney stones Hypertension Under surveillance Left renal mass s/p left nephrectomy 2018 Osteoarthritis Renal oncocytoma Surgical History H/O section x2, had spinal for 2nd one H/O dilation and curettage History of colonoscopy History of lithotripsy x2 ESWL (07/09/21): LMA#4, atraumatic at [facility] [place] History of nephrectomy left, 2/2 benign mass Nephrectomy (10/18/17): Smooth induction. No view with D.L, grade view 3/4. Atraumatic intubation with Glidescope 3. History of total hip arthroplasty left Nausea and vomiting after administration of anesthetic agent Family History Father Cardiac disorder Mother Cardiac disorder Hypertension Brother Prostate cancer Hypertension Grandfather Kidney stone Daughter Kidney stone Aunt Pancreatic cancer Other No family history of adverse response to anesthesia Social History Smoking Status: Never smoker Second Hand Exposure: Yes (years ago); Hx Alcohol Use: No Hx Substance Use: No Preferred Language: Montserratian Communication Ability: Effective Visual Impairment: No Limitations Manager Gaming Required: No Beliefs That Will Affect Care: None marital status: Current Living Situation: Spouse Feels Safe at Home: Yes Assistive Devices: Glasses and Walker Review of Systems Review of Systems: All systems reviewed & are unremarkable except as noted in Subjective Physical Exam 2 Physical Exam: General: A&Ox3. NAD. Cooperative. HEENT: Atraumatic, normocephalic. PERLAA, EoM instact w/o nystagmus. Vision/hearing grossly intact Pulm: CTAB A&P. -wheezes, -rales, -rhonchi. Symmetrical chest rise. No increased work of breathing. No respiratory distress. Cardiac: RRR, +sys murmur. Radial pulses intact and symmetrical. no JVD Abdominal: Nontender, nondistended, soft. BS present. Ext: Warm, dry. Hallux cap refill brisk bilaterally. Sensation in toes intact bilaterally to soft touch. Mathematical Engineering Technician strength, elbow flexion/extension, shoulder flex ion/extension 5/5 bilater. Ankle dorsi/plantarflexion5/5 bilat.R hip with post- op dressing in place. Hip flexion testing limited by post-op recovery. Results & Data Results & Data ([facility]) Vital Signs (Past 12 Hours) Vital Signs Temp Pulse Resp BP Pulse Ox 08/11/21 11:45 98 H 22 148/74 H 100 08/11/21 11:35 103 H 14 146/70 H 100 08/11/21 11:25 103 H 15 141/66 H 100 08/11/21 11:19 36.8 C 102 H 16 136/68 100 08/11/21 07:56 36.5 C 86 18 155/86 H 97 PG Care Time/CCT Total # of Minutes Spent Total Time Spent with Patient: Total time spent is greater than 50% in coordination of care (as documented) at patient's floor/unit and/or counseling patient: Coding Level of Care Code 50114 Inpt Consult Level 4 Diagnoses Syncope R55 Syncope type: unspecified Acute dehydration E86.0 Hypertension I10 Arthritis M19.90 Vitamin D deficiency E55.9 Chronic kidney disease, stage II (mild) N18.2 History of nephrectomy Z90.5 Right knee DJD M17.11 (1) Syncope Syncope type: unspecified Qualified Code(s): R55 - Syncope and collapse
[2021-08-11] MEDS ORDERED: METOPROLOL TARTRATE 1 MG/ML VIAL IV STA (12:08)
--- NOTE | 2021-08-11 12:17 | XRay Report ---
XR knee RT 1 or 2V routine HISTORY: 76 years-old Female post op right knee total joint arthroplasty COMPARISON: Right knee radiographs 07/19/2021 TECHNIQUE: 2 views of the right knee FINDINGS: Right knee total joint arthroplasty with patellar resurfacing. Anterior midline skin fay are note d along with expected postoperative soft tissue swelling with deep tissue air. No acute fracture or u nexpected opaque foreign body IMPRESSION: Right knee total joint arthroplasty with expected postoperative findings. ACT 112: Negative or not required by law. The above report was generated using voice recognition software. It may contain grammatical, syntax o r spelling errors. Electronically signed by: Eduard Suarez M.D. 08/11/2021 12:15 PM
[2021-08-11] MEDS ORDERED: NITROGLYCERIN SL 0.4 MG/TAB TAB SL PRN (12:49)
[2021-08-11] MEDS ORDERED: diphenhydrAMINE 50 MG/ML VIAL IV PRN (12:49)
[2021-08-11] MEDS ORDERED: METOCLOPRAMIDE HCL INJ 5 MG/ML 2 ML VIAL IV PRN (12:49)
[2021-08-11] MEDS ORDERED: MAGNESIUM HYDROXIDE SUSP 30 ML UDC PO PRN (12:49)
[2021-08-11] MEDS ORDERED: HYDROmorphone INJ 0.5 MG/0.5 ML SYR IV PRN (12:49)
[2021-08-11] MEDS ORDERED: bisacodyL 10 MG SUPP PR PRN (12:49)
[2021-08-11] MEDS ORDERED: ALUMINUM/MAGNESIUM SUSP 30 ML UDC PO PRN (12:49)
[2021-08-11] MEDS ORDERED: NALOXONE HCL 0.4 MG/1 ML VIAL/CARP IV PRN (12:49)
[2021-08-11] MEDS ORDERED: ORTHO WARFARIN NOMOGRAM SCH (14:00)
[2021-08-11] MEDS: ACETAMINOPHEN 500 MG TAB PO SCH ×2 (14:46→21:06)
[2021-08-11] MEDS: SODIUM CHLORIDE 0.9% 1000ML 1,000 ML IV SCH (14:46)
--- NOTE | 2021-08-11 15:10 | Ultrasound Report ---
ULTRASOUND OF THE CAROTID ARTERIES CLINICAL HISTORY: Syncope. COMPARISON STUDY: No priors. TECHNIQUE: Real-time, grayscale, and color Doppler sonography of the carotid arteries is performed. I mages are reviewed in the transverse and longitudinal planes. FINDINGS: The carotid arteries are patent bilaterally and demonstrate antegrade flow. There is minimal atherosc lerotic plaque seen in the left carotid bulb. Normal doppler arterial waveforms are seen throughout. Velocity measurements are listed below. Common carotid peak systolic velocity (cm/sec): RIGHT: 77 LEFT: 85 ICA proximal peak systolic velocity (cm/sec): RIGHT: 62 LEFT: 63 ICA mid peak systolic velocity (cm/sec): RIGHT: 83 LEFT: 79 ICA distal peak systolic velocity (cm/sec): RIGHT: 73 LEFT: 74 ICA/CC peak systolic ratio: RIGHT: 1.1 LEFT: 0.9 Antegrade flow was shown in the vertebral arteries. The external carotid arteries are patent. IMPRESSION: 1. There is no sonographic evidence of hemodynamically significant stenosis in the right or left boucher tid arterial system. 2. Antegrade flow is shown in the vertebral arteries. ACT 112: Negative or not required by law. Electronically signed by: Sal Barnes M.D. 08/11/2021 3:09 PM
[2021-08-11 15:46] LABS: INR 1.1 (0.9-1.1); Prothrombin Time 11.2 Seconds (9.0-12.0)
[2021-08-11] MEDS ORDERED: CHECK SCOPOLAMINE PATCH PLACEMENT SCH (16:00)
[2021-08-11] MEDS ORDERED: WARFARIN SOD 5 MG TAB PO SCH (16:00)
[2021-08-11] MEDS: ASCORBIC ACID 500 MG TAB PO SCH (17:37)
[2021-08-11] MEDS: FERROUS GLUCONATE 324 MG TAB PO SCH (17:37)
[2021-08-11] MEDS: ceFAZolin 2000MG 2,000 MG/15 ML SYR IV SCH (17:58)
[2021-08-11] MEDS ORDERED: BISMUTH SUBSALICYLATE 262 MG CHEW PO SCH (21:00)
[2021-08-11] MEDS ORDERED: MELATONIN 3 MG TAB PO SCH (21:00)
[2021-08-11] MEDS ORDERED: SENNA 8.6 MG TAB PO SCH (21:00)
[2021-08-11] MEDS: DOCUSATE SODIUM 100 MG CAP PO SCH (21:06)
--- NOTE | 2021-08-12 01:08 | Communication Note ---
Date of Service: August 11, 2021 Notified by nursing of concern for confusion in patient/being oriented to self only and difficulty with re-orientation. Upon my arrival to the room, patient was resting comfortably in bed. Reports some post-op discomfort in the knee. She is A/O x4, clear speech, able to recount events of the day, and has no focal neuro deficits. Patient notes that she does have difficulty sleeping at baseline. She admits to feeling disoriented when waking up from her most recent nap. Discussed with RN at bedside who notes that patient had just woken up from sleep when she appeared confused but she has since returned to baseline. Will continue to monitor for changes in symptoms. Recommend re-orientation as needed for confusion.
[2021-08-12] MEDS: SODIUM CHLORIDE 0.9% 1000ML 1,000 ML IV SCH (01:13)
[2021-08-12] MEDS: ceFAZolin 2000MG 2,000 MG/15 ML SYR IV SCH (02:23)
[2021-08-12] MEDS: oxyCODONE HCL IR 5 MG TAB (IMMEDIATE RELEASE) PO PRN ×2 (02:23→12:28)
[2021-08-12 05:20] LABS: Hematocrit (blood only) 32.4 % (37-47); Hemoglobin 10.7 g/dL (12.0-16.0); Mean Corpuscular Hemoglobin 28.3 pg (25-34); Mean Corpuscular Volume 85.7 fL (80-100); Mean Platelet Volume 9.8 fL (7.4-10.4); Platelet Count 246 K/uL (130-400); RDW Coefficient of Variation 14.3 % (11.5-14.5); RDW Standard Deviation 44.4 fL (36.4-46.3); Red Blood Count 3.78 M/uL (4.2-5.4); White Blood Count 11.91 K/uL (4.8-10.8)
[2021-08-12 05:41] LABS: INR 1.1 (0.9-1.1); Prothrombin Time 11.5 Seconds (9.0-12.0)
[2021-08-12] MEDS: ACETAMINOPHEN 500 MG TAB PO SCH (05:54)
[2021-08-12 06:21] LABS: BUN Creatinine Ratio 22.9 (10-20); Calcium 8.8 mg/dl (8.5-10.1); Est GFR (African American) 96.9 ml/min; Est GFR (Non-African American) 83.6 ml/min; Potassium 3.8 mmol/L (3.5-5.1)
--- NOTE | 2021-08-12 07:01 | Progress Notes ---
SUBJECTIVE: Postop check status post right total knee replacement. The patient has had no issues with chest pain, shortness of breath, fever, chills, nausea, vomiting, or headache. OBJECTIVE: Vital signs are stable. She is afebrile. Neurovascular check femoral sciatic nerve is normal. Wound dressing clean and dry. LABORATORY DATA: Hematocrit stable at 32. White count slightly elevated, likely based on steroids. Electrolytes are good. Troponin is at 26.6, I am sure there is some crossover from quadriceps muscle trauma from the surgery. Her carotid Doppler was without any significant findings. ASSESSMENT AND PLAN: Overall, doing well. Will change dressing today by PA. Will have PT/OT. Discontinue IV fluids. Discharge conditionally pending clearance from medical service. Of note is that she had some post-awakening transient confusion as to place and time, but cleared quickly and this is something that happens to her when she wakes from naps. Await hospitalist input, but hopefully discharge after PT/OT today. Job ID: [id number] AMY
[2021-08-12] MEDS ORDERED: dexAMETHasone 10 MG in SYRINGE 0 ML IV SCH (08:00)
[2021-08-12] MEDS: DOCUSATE SODIUM 100 MG CAP PO SCH (08:09)
[2021-08-12] MEDS: FERROUS GLUCONATE 324 MG TAB PO SCH (08:10)
[2021-08-12] MEDS: ASCORBIC ACID 500 MG TAB PO SCH (08:10)
[2021-08-12] MEDS ORDERED: ROSUVASTATIN CALCIUM 5 MG TAB PO SCH (09:00)
[2021-08-12] MEDS ORDERED: MULTIVITAMIN TAB PO SCH (09:00)
[2021-08-12] MEDS ORDERED: CHLORTHALIDONE 25 MG TAB PO SCH (09:00)
--- NOTE | 2021-08-12 10:07 | Orthopedic Progress Note ---
Date of Service August 12, 2021 Assessment & Plan (1) S/P total knee replacement using cement: Plan: Patient was educated regarding today's findings. Conservative care measures were discussed. Postsurgical dressings were changed today by me. YOHANNES hose were applied. She will leave the dressings in place until Monday, at which time they may be changed by home health. Continue using the knee immobilizer today and tomorrow, and discontinue its use on Monday. She is aware. PT/OT today. Coumadin today per nomogram. Please administer before departure if she is discharged today. Follow-up in the office in 2 weeks with Douglas as scheduled for staple removal Written discharge instructions will be provided. I will speak with the hospitalist service regarding her labs and when discharge may be appropriate for her. Admission and Anticipated Discharge Date Admission Date: August 11, 2021 Subjective Patient is seen in her room this morning. She has no current complaints other than knee pain. Denies any chest pain, shortness of breath, nausea, vomiting, dizziness, numbness, or tingling. Her worst discomfort is around her upper thigh, in the area of the applied tourniquet. She did have some confusion yesterday after waking up from a nap. This is not unusual for her. She is currently mentating normally. Review of Systems Review of Systems: Unchanged from yesterday. Physical Exam Physical Exam: General: Well-developed, well-nourished, elderly white female, in no acute distress. Laying in bed. Alert and oriented. Conversive. Skin: Warm and dry with good turgor. No rashes. No ecchymosis or erythema. Postsurgical dressings are in place. They are dry. Upon removal, there is scant dried blood on the innermost dressings. She currently has no active bleeding from her surgical site. Expected postoperative edema. Musculoskeletal: Patient has intact motor function of her ankle and toes. She is able to set her quad. She is able to do a straight leg raise with some minor assistance. She is able to get into full extension with some coaxing. She prefers to keep her knee slightly flexed. Neurologic: Gross sensation is intact across the right leg by soft touch. Peripheral pulses are 2+. Results & Data ([facility]) Vital Signs (Past 12 Hours) Vital Signs Temp Pulse Pulse Resp BP Pulse Ox 08/12/21 07:18 77 08/12/21 06:32 36.7 C 69 18 144/58 H 95 08/12/21 02:14 37.0 C 89 18 149/72 H 97 08/11/21 23:09 81 100/50 L 94 08/11/21 22:53 36.5 C 82 18 123/72 97 08/11/21 22:18 81 Laboratory Results CBC this morning shows a mild elevation in white count at 11.9. Hemoglobin 10.7, hematocrit 32.4. INR is 1.1 this morning. Sodium 134, potassium 3.8, chloride 99, BUN 16, creatinine 0.7. Glucose 109. Calcium 8.8. Troponin this morning is 26.6. It continues to trend higher from initial 14.2 yesterday to 21.8 last evening. Given that she is asymptomatic, this may be related to her surgery.
--- NOTE | 2021-08-12 12:13 | Hospitalist Progress Note ---
Date of Service August 12, 2021 Assessment & Plan (1) Syncope: Plan: Melissa is a 76-year-old female with a history of left nephrectomy, hypertension, CKD 2, and osteoarthritis who presented to the [facility] for right total knee replacement. Medical service has been consulted as patient did experience an episode of presyncope thought to be vasovagal in the setting of hypovolemia while n.p.o. who improved with NSS in the ER and subsequently underwent total knee replacement but who had concern for potential T wave changes in V6 and lead to towards the end of the procedure. Syncope, concern for postoperative T wave changes Patient with an episode of syncope in the setting of n.p.o. for right knee total arthroplasty. Was seen in ER for evaluation, etiology thought to be vasovagal with dehydration. Did clinically improve with 1 L NSS and currently underwent right total knee arthroplasty Postop EKG: Flattened equivocal T wave in V6, otherwise similar to prior NSR without ST segment changes. Sinus bradycardia rate 59, QTc 461 Patient does report history of near syncope with decreased fluid intake and orthostasis while n.p.o. - Clinically asymptomatic with no chest pain/SoB/presyncope at bedside. Normotensive, HR 80-90s. - HEART score 3-4 points No abnormalities on overnight telemetry High-sensitivity troponin with low-grade elevation, peaked at 26 and downtrended. No clinical symptoms of ACS. Consistent with demand ischemia. Recommend outpatient followup and outpatient stress test TTE 08/03/2021: Normal LV SF, no regional wall motion abnormalities, EF approximately 65%, grade 1 diastolic dysfunction of the left ventricle, mild mitral regurg - Carotid dopplers with out acute abnormality Osteoarthritis of the right knee, status/post cemented right total knee replacement Estimated blood loss 25 cc, no major bleeding, third procedure well although was evaluated for concern for T wave changes as noted above. Otherwise no complications. 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 without subsequent complication Baseline creatinine approximately 0.91, GFR approximately 90, structurally normal right ultrasound on 08/19 follow-up Avoid NSAIDs - Cr at baseline, no FLORY Vitamin D deficiency Continue vitamin D supplementation, calcium supplementation History of hematuria Related to kidney stones, no mass noted on above evaluation No acute intervention, continue outpatient monitoring GERD Famotidine 20 mg twice daily as needed for GERD, PPI deferred for BMD ED prophylaxis: Per primary surgical team Diet: Per primary surgical team Disposition: Monitor and med/telemetry for syncope overnight CODE STATUS: Full code (2) Acute dehydration: Plan: - s/p NSS in ER 1L, minimal blood loss in ER - Diet per surgery, may add second 500cc-1L NSS bolus if sinus tach/hypotensive and above eval remains normal (3) Hypertension: (4) Arthritis: (5) Vitamin D deficiency: (6) Chronic kidney disease, stage II (mild): (7) History of nephrectomy: (8) Right knee DJD: Admission and Anticipated Discharge Date Admission Date: August 11, 2021 Subjective Seen at bedside. Is doing mobilization exercises at time of visit. Has some postsurgical pain in her knee and some unchanged right hip pain. No fever, chills, sweats, chest pain, chest pressure, shortness of breath, lightheadedness, dizziness, syncope. Review of Systems Review of Systems: All systems reviewed & are unremarkable except as noted in Subjective Physical Exam Physical Exam: General: A&Ox3. NAD. Cooperative. HEENT: Atraumatic, normocephalic.Vision/hearing grossly intact Pulm: CTAB A&P. -wheezes, -rales, -rhonchi. Symmetrical chest rise. No increased work of breathing. No respiratory distress. Cardiac: RRR, +sys murmur. Radial pulses intact and symmetrical. no JVD Abdominal: Nontender, nondistended, soft. BS present. Ext: Warm, dry. Cap refill brisk in both hallux Results & Data Results & Data ([facility]) Vital Signs (Past 12 Hours) Vital Signs Temp Pulse Pulse Resp BP BP Pulse Ox 08/12/21 11:12 36.9 C 89 20 164/72 H 97 08/12/21 07:18 77 08/12/21 06:32 36.7 C 69 18 144/58 H 95 08/12/21 02:14 37.0 C 89 18 149/72 H 97 PG Care Time/CCT Total # of Minutes Spent Total Time Spent with Patient: Total time spent is greater than 50% in coordination of care (as documented) at patient's floor/unit and/or counseling patient: Coding Level of Care Code 49015 Subseq Hosp Care Lvl 2 Diagnoses Syncope R55 Syncope type: unspecified Acute dehydration E86.0 Hypertension I10 Arthritis M19.90 Vitamin D deficiency E55.9 Chronic kidney disease, stage II (mild) N18.2 History of nephrectomy Z90.5 Right knee DJD M17.11 (1) Syncope Syncope type: unspecified Qualified Code(s): R55 - Syncope and collapse
[2021-08-12] MEDS ORDERED: WARFARIN SOD 5 MG TAB PO SCH (16:00)
--- NOTE | 2021-08-13 11:46 | Electrocardiogram Report ---
Test Reason : Blood Pressure : / mmHG Vent. Rate : 101 BPM Atrial Rate : 101 BPM P-R Int : 188 ms QRS Dur : 094 ms QT Int : 354 ms P-R-T Axes : 085 049 160 degrees QTc Int : 459 ms Sinus tachycardia Possible Left atrial enlargement Left ventricular hypertrophy with repolarization abnormality Abnormal ECG When compared with ECG of 11-AUG-2021 05:32, Vent. rate has increased BY [address] now depressed in Anterolateral leads T wave inversion now evident in Anterolateral leads Confirmed by Neil Chapman ([id number]) on 08/13/2021 11:45:58 AM Referred By: Joe Salas Confirmed By:Neil Chapman
== END 2021-08-12 14:59 | disposition home health service (06) ==
LOC: ASU 05:12 → 2N 05:12
DX: E86.0 Dehydration; E55.9 Vitamin D deficiency, unspecified; M21.261 Flexion deformity, right knee; M65.161 Other infective (teno)synovitis, right knee; M25.761 Osteophyte, right knee; M17.11 Unilateral primary osteoarthritis, right knee; N18.2 Chronic kidney disease, stage 2 (mild); Z79.899 Other long term (current) drug therapy; I12.9 Hypertensive chronic kidney disease with stage 1 through stage 4 chronic kidney disease, or unspecified chronic kidney disease; R55 Syncope and collapse